=== PATIENT | female | born 1990 | race Caucasian/White ===

== ENCOUNTER 2018-08-29 01:55 | Emergency (ER) | payer MEDICAID, SELFPAY ==
[2018-06-13 10:18] VITALS: BMI 23.9
[2018-08-29 01:56] VITALS: BP 115/76; PULSE 99; RESP 16; TEMP 36.5; O2SAT 100; BMI 22.8
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
[2018-08-29] MEDS: oxyCODONE 5 MG Tablet PO (02:17)
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
[2018-08-29 02:50] VITALS: RESP 16
== END 2018-08-29 02:50 | disposition home or self-care (01) ==
PROVIDERS: Emergency Provider Emergency Medicine
DX: S90.212A Contusion of left great toe with damage to nail, initial encounter (principal); X58.XXXA Exposure to other specified factors, initial encounter; Y93.89 Activity, other specified; Y92.89 Other specified places as the place of occurrence of the external cause; Y99.8 Other external cause status
CPT/HCPCS: 73630; 99283

== ENCOUNTER 2019-05-28 02:54 | Emergency (ER) | payer OTHER, MEDICAID, SELFPAY ==
[2019-05-28 02:55] VITALS: BP 103/89; PULSE 108; RESP 17; TEMP 36.4; O2SAT 100; BMI 24.7
[2019-05-28 03:10] LABS: Mucous, Urine 0 SEEN /hpf (<or=2+); Squamous Epithelial Cells - UA 0 SEEN /hpf (5-10)
[2019-05-28 03:22] LABS: Color, Urine Yellow (Yellow); Glucose, Dipstick Normal (Normal); Ketone-Dipstick 5 mg/dl (Negative); Leukocyte Esterase-Dipstick 100 /ul (Negative); Nitrite-Dipstick Positive (Negative); Occult Blood-Urine 250 /ul (Negative); Protein-Dipstick 100 mg/dl (Negative); Specific Gravity, Urine 1.015 (1.002-1.030); Urine Bilirubin Dipstick Negative (Negative); Urine Clarity Cloudy (Clear); Urine Urobilinogen Normal (Normal)
[2019-05-28 03:25] LABS: Internal QC Validated? YES +Cl - CLEAR BKGD; Pregnancy, Urine Negative Negative
[2019-05-28 03:27] LABS: Bacteria 3+ /hpf (None Seen); White Blood Cells 50-100 SEEN /hpf (0-5)
[2019-05-28 03:28] LABS: Red Blood Cells-Urine 10-25 SEEN /hpf (0-5)
--- NOTE | 2019-05-28 03:40 | ED.DCSUM_ITS ---
- ER Visit Summary Date of Service: 05/28/19 Chief Complaint: UTI History of Present Illness: The patient is a 28 F with burning and frequency. No back pain. No fevers. No history of kidney stones. 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 Physical Examination: Back is nontender. Abdomen nontender. exam deferred. Nontoxic. Test Results: negative. Urinalysis shows UTI. Emergency Department Course and Treatment: There is no indication for cultures, further testing, or inpatient care. Patient is appropriate for outpatient treatment and will be started on Macrobid. She also received Pyridium. Follow- up with primary care for recheck. Return for new or worsening issues. Treatment Plan: As above Disposition: Discharge Impression: 1. UTI, cystitis This note was generated with Petflow dictation software. It may contain incorrect words, spelling, and punctuation that were not noted in review of the chart prior to signing ED Disposition - Plan for ED Patient: Referrals: Care Physician,No Primary [Primary Care Provider] -
[2019-05-28] MEDS: Nitrofurantoin Macrocrystals 100 MG Capsule PO (03:41)
[2019-05-28] MEDS: Phenazopyridine 95 MG Tablet 190 MG PO (03:41)
--- NOTE | 2019-05-28 03:41 | ED.DEP ---
ED Disposition - Plan for ED Patient: Instructions: Bladder Infection, Female (Adult) Prescriptions: Nitrofurantoin Macrocrystals [Macrobid] 100 mg PO Q12 #10 cap Prescription Printed Phenazopyridine HCl [Pyridium] 200 mg PO TID #6 tab Prescription Printed Referrals: Scarlett Larsen [NON-STAFF] -
[2019-05-28 03:48] VITALS: BP 102/60; PULSE 90; RESP 18; O2SAT 96
== END 2019-05-28 03:48 | disposition home or self-care (01) ==
PROVIDERS: Emergency Provider Emergency Medicine
DX: N30.90 Cystitis, unspecified without hematuria (principal); R35.0 Frequency of micturition; R30.0 Dysuria
CPT/HCPCS: 81001; 81025; 99283

== ENCOUNTER 2019-06-30 23:05 | Emergency (ER) | payer MEDICAID, SELFPAY ==
[2019-06-30 23:06] VITALS: BP 122/73; PULSE 105; RESP 14; TEMP 36.2; O2SAT 100; BMI 23.8
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
[2019-06-30] MEDS: Naproxen 500 MG Tablet PO (23:27)
== END 2019-06-30 23:28 | disposition home or self-care (01) ==
LOC: ED 23:27
PROVIDERS: Emergency Provider Emergency Medicine
DX: S63.501A Unspecified sprain of right wrist, initial encounter (principal); X58.XXXA Exposure to other specified factors, initial encounter; Y93.9 Activity, unspecified; Y92.9 Unspecified place or not applicable; F17.200 Nicotine dependence, unspecified, uncomplicated
CPT/HCPCS: 99283

== ENCOUNTER 2019-07-24 00:04 | Emergency (ER) | payer MEDICAID, SELFPAY ==
[2019-07-24 00:06] VITALS: BP 124/91; PULSE 107; RESP 17; TEMP 36.5; O2SAT 100; BMI 24.6
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
[2019-07-24] MEDS: Naproxen 500 MG Tablet PO (00:47)
[2019-07-24] MEDS: Ondansetron ODT 4 MG Tablet PO (01:27)
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
[2019-07-24 02:09] VITALS: BP 113/72; PULSE 74; RESP 16; O2SAT 100
== END 2019-07-24 02:11 | disposition home or self-care (01) ==
PROVIDERS: Emergency Provider Emergency Medicine
DX: S01.312A Laceration without foreign body of left ear, initial encounter (principal); Y04.8XXA Assault by other bodily force, initial encounter; Z72.0 Tobacco use
CPT/HCPCS: 70450; 70486; 99283

== ENCOUNTER 2020-07-04 01:06 | Emergency (ER) | payer MEDICAID, SELFPAY ==
[2020-07-04 01:08] VITALS: BP 125/73; PULSE 100; RESP 18; TEMP 36.5; O2SAT 100; BMI 26.9
--- NOTE | 2020-07-04 01:13 | ED.VIS.GEN ---
History of Present Illness Chief Complaint: Rash Informant: Patient Onset: Yesterday Context: Gradual Onset Timing: Continuous Current Severity: Moderate Maximum Severity: Moderate Narrative: Patient is a 29-year-old female that presents to the emergency department hives. She states that she saw her doctor in the office on Sunday for acne. She was started on spironolactone Bactrim. States last night, she noticed hives on her neck. She thought it was secondary to her mask. She still took her medication. She states today was worsening. She states it was across her chest. She denies any pain in her throat or pain in her eyes. She is never had reaction like this to sulfa. She has no history of Ennis-Chalo. She denies trouble speaking or swallowing. She states she did take children's Benadryl, but thinks it was only about 10 to 15 mg. Prior similar symptoms: No Recent Illness/Hospitalization: No Past Medical History - Allergies and Home Meds Allergies/Adverse Reactions: Allergies peanut Allergy (Verified 07/04/20 01:12) Anaphylaxis spironolactone Allergy (Verified 07/04/20 01:13) Rash sulfamethoxazole [From Bactrim] Allergy (Verified 07/04/20 01:13) Rash trimethoprim [From Bactrim] Allergy (Verified 07/04/20 01:13) Rash Primary Care Physician: Steve Michael MD [Primary Care Provider] - Prior records reviewed: Yes Past Medical History: None Surgical History: no surgical history Smoking Status: Current every day smoker Review of Systems General: Denies: Chills, Fever, Sweats Eyes: Denies: Visual changes - bilaterally, Diplopia ENT: Denies: Rhinorrhea, Sore throat Cardiovascular: Denies: Chest pain, Palpitations Respiratory: Denies: Dyspnea, Cough, Dyspnea on exertion Gastrointestinal: Denies: Abdominal pain, Nausea, Vomiting, Diarrhea, Melena, Hematochezia Genitourinary: Denies: Dysuria, Hematuria, Frequency Musculoskeletal: Denies: Back pain, Extremity Pain Skin: Reports: Rash. Denies: Wounds Neurological: Denies: Headache, Weakness, Numbness Physical Exam Vital Signs/Narrative: Vital Signs Temp Pulse Resp BP Pulse Ox 07/04/20 01:08 97.7 F L 100 18 125/73 H 100 Inital Vital Signs reviewed: Yes General: Well nourished, Well developed, No Acute Distress Head: Normocephalic, Atraumatic Eyes: Perrl, EOMI ENT: Moist mucous membranes, No rhinorrhea Neck: Supple, Nontender Cardiovascular: Regular rate, Regular rhythm, No murmurs Respiratory: No distress, CTA bilaterally, Chest nontender Abdomen: Soft, Nontender, Nondistended, Normal bowel sounds Back: Nontender, Normal Inspection Extremities: Nontender, No edema Skin: Normal color, Rash - Patient has urticaria over the anterior neck and chest. The oromucosa is normal. Neurological: Alert, Oriented x3, Cranial nerves II-XII grossly intact, Normal Strength, Normal Sensation Psychological: Normal affect, Normal Mood Diagnostic/Tx/Re-eval - Medical Decision Making Patient presents with hives. I do feel this is likely drug reaction. She has no evidence of Ennis-Chalo. She was given appropriate dose of Benadryl based on her weight. I also placed on a prednisone burst. She will stop taking these medications. She will be discharged home. Impression 1. Urticaria ED Disposition - Plan for ED Patient: Instructions: ED General Allergic Reactions Prescriptions: Prednisone [Deltasone] 40 mg PO DAILY #10 tab Prescription Printed Referrals: Steve Michael MD [Primary Care Provider] -
[2020-07-04] MEDS: DiphenhydrAMINE 25 MG Capsule 50 MG PO (01:17)
[2020-07-04] MEDS: predniSONE 20 MG Tablet 60 MG PO (01:17)
== END 2020-07-04 01:30 | disposition home or self-care (01) ==
LOC: ED 01:29
PROVIDERS: Emergency Provider Emergency Medicine; PCP Family Medicine
DX: L50.9 Urticaria, unspecified (principal); F17.200 Nicotine dependence, unspecified, uncomplicated
CPT/HCPCS: 99283

== ENCOUNTER 2021-11-26 15:20 | Emergency (ER) | payer MEDICAID, SELFPAY ==
[2021-11-26 15:20] VITALS: BP 123/83; PULSE 101; RESP 16; TEMP 36.4; O2SAT 97; BMI 31.2
--- NOTE | 2021-11-26 16:13 | ED.RN ---
Pt states she is leaving, does not want to wait any longer. Pt ambulated out of dept without any difficulty.
== END 2021-11-26 16:46 | disposition left against medical advice (07) ==
LOC: ED 16:46
PROVIDERS: PCP Family Medicine
DX: Z53.21 Procedure and treatment not carried out due to patient leaving prior to being seen by health care provider (principal)